=== PATIENT | male | born 1980 | race Two or more races ===

== ENCOUNTER 2019-03-29 19:13 | Emergency (ER) | payer SELFPAY ==
[~2019-03-29] VITALS: Ht 167.6 cm; Wt 68.0 kg
--- NOTE | 2019-03-29 19:15 | NUR ---
CALLED FOR TRIAGE, NO ANSWER
--- NOTE | 2019-03-29 19:20 | NUR ---
"BIB SELF C/O LLE WOUND X2 WEEKS." PT [id number], PT ON MONITOR, VSS ,NAD NOTED., PENDING MD ALMENDAREZ
[2019-03-29] MEDS ORDERED: IV NS 0.9% 1,000 ML BAG IV ONE (20:30)
[2019-03-29] MEDS ORDERED: SILVER SULFADIAZINE CREAM 25 GM TUBE TP ONE (20:30)
[2019-03-29] MEDS ORDERED: ONDANSETRON HCL/PF 4 MG/2 ML VIAL IVP ONE (20:30)
[2019-03-29 20:47] LABS: BASOPHILS # (AUTO) 0.1 /CMM (0.0-0.2); BASOPHILS % (AUTO) 0.7 % (0.0-2.0); HEMATOCRIT 45 % (39-51); LYMPHOCYTES # (AUTO) 1.8 /CMM (0.8-4.8); LYMPHOCYTES % (AUTO) 26.2 % (20.0-44.0); MEAN CORPUSCULAR HGB CONC 34 g/dl (31.0-36.0); MEAN CORPUSCULAR VOLUME 91 fL (80-96); MONOCYTES # (AUTO) 0.4 /CMM (0.1-1.30); MONOCYTES % (AUTO) 6.6 % (2.0-12.0); NEUTROPHILS # (AUTO) 4.2 /CMM (1.8-8.9); NEUTROPHILS % (AUTO) 62.5 % (43.0-81.0); PLATELET COUNT (AUTO) 367 /CMM (150-450); RED BLOOD CELL COUNT(AUTO) 4.93 MIL/uL (4.5-6.0); WHITE BLOOD COUNT (AUTO) 6.8 K/uL (4.3-11.0)
[2019-03-29] MEDS ORDERED: ONDANSETRON HCL/PF 4 MG/2 ML VIAL ONE (20:54)
[2019-03-29 20:56] LABS: BILIRUBIN,DIRECT 0.1 mg/dL (0.0-0.2); BILIRUBIN,TOTAL 0.3 mg/dL (0.2-1.0); CALCIUM, SERUM 8.8 mg/dL (8.5-10.1); CREATININE 0.8 mg/dL (0.6-1.3); POTASSIUM 3.8 mmol/L (3.5-5.1); TOTAL PROTEIN, SERUM 7.8 g/dL (6.4-8.2)
[2019-03-29] MEDS ORDERED: SILVER SULFADIAZINE CREAM 25 GM TUBE ONE (20:56)
--- NOTE | 2019-03-29 22:56 | NUR ---
Patient discharged to home in stable condition. Written and verbal after care instructions given. Patient verbalizes understanding of instruction. IV removed. Catheter intact and site benign. Pressure and 4x4 applied to site. No bleeding noted.
[2019-03-29 23:33] VITALS: BP 119/75
== END 2019-03-29 23:35 | disposition home or self-care (01) ==
LOC: ER 19:18
DX: T24.602A Corrosion of second degree of unspecified site of left lower limb, except ankle and foot, initial encounter (principal); L97.929 Non-pressure chronic ulcer of unspecified part of left lower leg with unspecified severity; R11.2 Nausea with vomiting, unspecified; E86.0 Dehydration; Y93.89 Activity, other specified; Y92.89 Other specified places as the place of occurrence of the external cause; Y99.8 Other external cause status
CPT/HCPCS: 16020; 36415; 80048; 80076; 82962; 83690; 85025; 96361; 96374; 99284; J2405; J7030

== ENCOUNTER 2019-03-30 08:23 | Emergency (ER) | payer SELFPAY ==
[~2019-03-30] VITALS: Ht 165.1 cm; Wt 70.8 kg
[2019-03-30 08:31] VITALS: BP 117/29
--- NOTE | 2019-03-30 09:04 | NUR ---
Patient discharged to home in stable condition. Written and verbal after care instructions given. Patient verbalizes understanding of instruction.
== END 2019-03-30 09:05 | disposition home or self-care (01) ==
LOC: ER 08:34
DX: R42 Dizziness and giddiness (principal)

== ENCOUNTER 2019-04-01 14:54 | Emergency (ER) | payer SELFPAY ==
[~2019-04-01] VITALS: Ht 167.6 cm; Wt 68.0 kg
[2019-04-01 15:02] VITALS: BP 120/69
== END 2019-04-01 15:43 | disposition home or self-care (01) ==
LOC: ER 14:54
DX: T24.402A Corrosion of unspecified degree of unspecified site of left lower limb, except ankle and foot, initial encounter (principal); F31.9 Bipolar disorder, unspecified; Y93.89 Activity, other specified; Y92.89 Other specified places as the place of occurrence of the external cause; Y99.8 Other external cause status

== ENCOUNTER 2019-04-12 03:25 | Emergency (ER) | payer SELFPAY ==
[~2019-04-12] VITALS: Ht 170.2 cm; Wt 74.8 kg
[2019-04-12 03:56] VITALS: BP 120/78
--- NOTE | 2019-04-12 04:20 | NUR ---
PT DID NO COMPLY WITH STAYING IN HIS ASSIGNED ROOM, PT LEFT EMERGENCY DEPARTMENT.
== END 2019-04-12 04:22 | disposition left against medical advice (07) ==
LOC: ER 03:25
DX: M79.673 Pain in unspecified foot (principal); Z53.21 Procedure and treatment not carried out due to patient leaving prior to being seen by health care provider